=== PATIENT | female | born 1955 | race Caucasian/White ===

== ENCOUNTER 2021-01-05 08:34 | Day surgery (SDC) | payer BC ==
[2021-01-03 11:05] VITALS: BMI 33.6
[2021-01-05] MEDS ORDERED: MIDAZOLAM HCL 2 MG/2 ML SINGLE DOSE VIAL ONE (11:02)
[2021-01-05] MEDS ORDERED: BUPIVACAINE LIPOSOME/PF (EXPAREL) 266 MG/20 ML VIAL ONE (11:02)
[2021-01-05] MEDS ORDERED: BUPIVACAINE HCL/PF 0.5% (5MG/ML) 10 ML VIAL ONE (11:02)
[2021-01-05] MEDS ORDERED: PROPOFOL 20 ML ONE ×2 (11:23)
[2021-01-05] MEDS ORDERED: LIDOCAINE HCL 2% JELLY (5 ML/TUBE) ONE (11:29)
[2021-01-05] MEDS ORDERED: KETOROLAC TROMETHAMINE 30 MG/1 ML VIAL ONE (11:29)
[2021-01-05] MEDS ORDERED: ceFAZolin SODIUM 1 GM VIAL ONE (11:29)
[2021-01-05] MEDS ORDERED: ONDANSETRON 4 MG/2 ML VIAL ONE (11:29)
[2021-01-05] MEDS ORDERED: DEXAMETHASONE SOD PHOSPHATE 4 MG/1 ML VIAL ONE (11:29)
[2021-01-05] MEDS ORDERED: PROMETHAZINE HCL 25 MG/1 ML VIAL IVPUSH PRN (13:26)
[2021-01-05] MEDS ORDERED: ONDANSETRON 4 MG/2 ML VIAL IVPUSH PRN (13:26)
[2021-01-05] MEDS ORDERED: oxyCODONE HCL 5 MG TABLET PO PRN ×2 (13:26)
[2021-01-05 15:19] VITALS: TEMP 97.8
[2021-01-05 15:53] VITALS: BP 121/68; PULSE 79
== END 2021-01-05 14:25 | disposition home or self-care (01) ==
LOC: FASU 08:34
PROVIDERS: ATTEND Orthopaedic Surgery
PROC: 0QSG04Z Reposition Right Tibia with Internal Fixation Device, Open Approach (ICD-10-PCS; 2021-01-05)
PROC: 0QSJ04Z Reposition Right Fibula with Internal Fixation Device, Open Approach (ICD-10-PCS; principal; 2021-01-05 11:45)
DX: S82.841A Displaced bimalleolar fracture of right lower leg, initial encounter for closed fracture (principal); X58.XXXA Exposure to other specified factors, initial encounter; Y93.9 Activity, unspecified; Y92.9 Unspecified place or not applicable
CPT/HCPCS: 73610-TC-RT-FY; 82962; 94760